=== PATIENT | male | born 1980 | race Caucasian/White ===

== ENCOUNTER 2025-04-04 13:14 | Emergency (ER) | payer OTHER, SELFPAY ==
--- OUTSIDE RECORDS SUMMARY | 2025-04-04 13:16 | XMS_ITS | Encounter Summary ---
Author Organization [facility] Healthcare Address [address] [place] [address] Care Team Providers Care Roof Bolter Name Role Phone Freda Wray HEATING ELEMENT REPAIRER Unavailable [phone] Miri Coates NP Primary Care Provider [phone] Miri Coates NP Primary Care Provider [phone] Encounter Details Date Type Department Care Team (Late st Contact Info) Description 11/25/2024 Telephone [facility] Medical Group Primary Care at [address] [address] Miri Coates NP [address] [place] [address] [address] [place] [address] Social History Tobacco Use Types Packs/Day Years Used Date Smoking Tobacco: Never Smokeless Tobacco: Current Chew Alcohol Use Standard Drinks/Week Comments Yes 0 (1 standard drink = 0.6 oz pur e alcohol) [facility] Utilities Answer Date Recorded In the past 12 months has [place], gas, oil, or water [employer] threatened to shut off services in your home? No 09/03/2023 Social Connection and Isolat ion Panel [NHANES] Answer Date Recorded In a typical week, how many times do you talk on the phone with family, friends, or neighbors? More than three times a week 09/03/2023 How often do you get togethe r with friends or relatives? More than three times a week 09/03/2023 How often do you attend [facility] or baptist services? Never 09/03/2023 Do you belong to any clubs o r organizations such as tenriism groups, unions, fraternal or athletic groups, or school groups? No 09/03/2023 How often do you attend meet ings of the clubs or organizations you belong to? Never 09/03/2023 Are you , , di vorced, , never , or living with a partner? 09/03/2023 AUDIT-C Answer Date Recorded Q1: How often do you have a drink containing alcohol? Never 09/26/2023 Q2: How many drinks containi ng alcohol do you have on a typical day when you are drinking? Patient does not drink Q3: How often do you have si x or more drinks on one occasion? Never 09/26/2023 Overall Financial Resource Strain (CARDIA) Answe r Date Recorded How hard is it for you to pa y for the very basics like food, housing, medical care, and heating? Not very hard 09/03/2023 PHQ-2 Answer Date Recorded PHQ-2 Total Score (If total score is 3 or more points, staff should administer the PHQ-9) 0 11/18/2024 Hunger Vital Sign Answer Date Recorded Within the past 12 months, y ou worried that your food would run out before you got the money to buy more. Never true 09/03/20 23 Within the past 12 months, t he food you bought just didn't last and you didn't have money to get more. Never true 09/03/2023 PRAPARE - Transportation Answer Date Re corded In the past 12 months, has l ack of transportation kept you from medical appointments or from getting medications? No 08/16 In the past 12 months, has l ack of transportation kept you from meetings, work, or from getting things needed for daily living? No 09/03/2023 Housing Stability Vital Sign Answer Delmer e Recorded In the last 12 months, was t here a time when you were not able to pay the mortgage or rent on time? No 09/03/2023 In the last 12 months, how many places have you lived? 1 09/03/2023 In the last 12 months, was t here a time when you did not have a steady place to sleep or slept in a mcc (including now)? No 09/03/2023 Personal Safety Answer Date Recorded Have you ever been in or are you currently in a harmful physical or emotional relationship or is someone making you feel afraid or unsafe? Denies 09/26/2023 Sex and Gender Information Value Date Recorded Sex Assigned at Not on file Legal Sex Male 3:24 AM VENDETTE Gender Identity Not on file Sexual Orientation Not on file documented as of this encounter Plan of Treatment Not on file documented as of this encounter Visit Diagnoses Not on filedocumented in this encounter Care Teams Roof Bolter Relationship Specialty [place] [address] [facility] [address] [place] [address] PCP - General Family Medicine 10/03/23 02/24/25 Miri Coates NP [address] [facility] [address] [place] [address] PCP - General Family Medicine 02/25/25 Freda Wray HEATING ELEMENT REPAIRER [address] [facility] [address] [place] [address] Nurse Practitioner Urology 09/04/23 documented as of this encounter
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
--- OUTSIDE RECORDS SUMMARY | 2025-04-04 13:16 | XMS_ITS | Clinical Summary ---
Author Organization [facility] Address [address] [place] [address] Care Team Providers Care Game Room Attendant Name Role Phone Unavailable Primary Care Provider Unavailabl e Social History Tobacco Use Types Packs/Day Years Used Date Smoking Tobacco: Never Assessed Sex and Gender Information Value Date Recorded Sex Assigned at Not on file Legal Sex Male 1:30 PM PATIENT SERVICES CLERK Gender Identity Not on file Sexual Orientation Not on file Plan of Treatment Health Maintenance Due Date Last Done Comments Hepatitis C Virus (HCV) Screening 1980 Hepatitis B Immunization (1 of 3 - 19+ 3-dose series) 1997 Colonoscopy 2023 Colorectal Cancer Screening 2023 Influenza Immunization (#1) 2024 07/25/2018 SARS-COV-2 Immunization ( season) 2024 Respiratory Syncytial Virus (RSV) Immunization (Adult) (1 - 1-dose 75+ series) 2053 DTaP/Tdap/Td Immunization Discontinued 06/10/2018 TdaP Immunization Completed 06/10/2018 Meningococcal Immunization (ACWY) Aged Out No longer eligible based on patient's age to complete this topic Pneumococcal Immunization Combined Aged Out No longer eligible b ased on patient's age to complete this topic Rotavirus Immunization Aged Out No lo nger eligible based on patient's age to complete this topic
--- OUTSIDE RECORDS SUMMARY | 2025-04-04 13:16 | XMS_ITS | Referral Summary ---
Author Organization [facility] Address [address] [place] [address] Care Team Providers Care Chemical Manager Name Role Phone Freda Wray TORCH BRAZER Unavailable [phone] Miri Coates NP Primary Care Provider [phone] Encounters Date Type Department Care Team Description 01/21/2025 12:30 PM CDT Office Visit [facility] Primary Care at [address] [address] Miri Coates NP Primary hypertension (Primary Dx); Staphylococcus infection of nose from Last 3 Months Allergies No known active allergies Medications amlodipine-vals don (EXFORGE) 10-320 mg per tablet Take 1 tablet by mouth daily 90 tablet 1 5 01/22/20 26 Active mupirocin (BACTROBAN) 2 % ointment Apply topically 3 (three) times a day 22 g 5 Active Active Problems Problem Noted Date Diagnosed Date Annual physical exam 12/27/2023 Assessment & Plan (11/18/2024 3:25 PM INSTRUMENTATION ENGINEERING TECHNICIAN): -Recommended: Healthy diet. Avoiding junk food/fast food. [...] 11/14/2023 Assessment & Plan (11/18/2024 3:24 PM INSTRUMENTATION ENGINEERING TECHNICIAN): Cholesterol elevated last year. Will recheck with labs today Assessment & Plan (11/14/2023 10:15 AM INSTRUMENTATION ENGINEERING TECHNICIAN): Reviewed recent lab work with patient. LDL [...] his blood pressure medication to amlodipine valsartan 10/325. I asked him to call me with any side effects such as dizziness or lightheadedness. I refilled medication and I asked him to send me some blood pressures through [employer]. And will have him follow-up in 6 months for recheck Assessment & Plan (11/18/2024 3:24 PM INSTRUMENTATION ENGINEERING TECHNICIAN): Worsening, although he is also off the [...] blood pressure readings in 1 month through [employer]. Will have him follow-up in office in 6 months Assessment & Plan (11/14/2023 10:07 AM INSTRUMENTATION ENGINEERING TECHNICIAN): We are going to stop the Coreg. Start lisinopril 20 mg once daily. We are going to have him follow-up in 4-6 weeks for recheck on hypertension and physical. Assessment & Plan (10/03/2023 10:26 AM INSTRUMENTATION ENGINEERING TECHNICIAN): New diagnosis. Uncontrolled. Rechecked manually and was [...] 09/05/2023 Assessment & Plan (11/14/2023 10:09 AM INSTRUMENTATION ENGINEERING TECHNICIAN): He is having more pain on the [...] 09/02/2023 Assessment & Plan (10/03/2023 10:25 AM INSTRUMENTATION ENGINEERING TECHNICIAN): Currently has stents placed. Has follow-up with [...] 12/27/2023 Assessment & Plan (11/14/2023 10:08 AM INSTRUMENTATION ENGINEERING TECHNICIAN): Given symptoms of dysuria with urination I am going to go ahead and start Cipro 500 mg b.i.d. for 7 days. In the interim will send the urine off for culture. Then will call him with culture results and get an update on his symptoms if they have improved with antibiotics Gross hematuria 11/14/2023 12/27/2023 Assessment & Plan (11/14/2023 10:07 AM INSTRUMENTATION ENGINEERING TECHNICIAN): Urine dip was negative with the exception [...] up that will be chosen by pt Immunizations Immunization Administration Dates Next Due Influenza, Quadrivalent, Spl it, Preservative Free, Intramuscular 07/25/2018 Influenza, Unspecified 11/14/2023(Deferr ed: Patient Refused),10/03/2023(Deferred: Patient Refused),09/17/2022(Deferred: Patient Refused),06/17/2022(Deferred: Patient Refused) Tdap 06/11/2018,06/10/2018 Social History Tobacco Use Types Packs/Day Years Used Date Smoking Tobacco: Never Smokeless Tobacco: Current Chew Tobacco Cessation:Ready to Q uit: No; Counseling Given: Yes Alcohol Use Standard Drinks/Week Comments Yes 0 (1 standard drink = 0.6 oz pur e alcohol) [facility] Utilities Answer Date Recorded In the past 12 months has e electric, gas, oil, or water company threatened to shut off services in your [...] often do you attend chur ch or christian services? Never 09/03/2023 Do you belong to any clubs o r organizations such as baptism groups, unions, fraternal or athletic groups, or [...] place to sleep or slept in a jail (including now)? No 09/03/2023 Personal Safety Answer Date Recorded Have you ever been in or are you currently in a harmful physical or emotional relationship or is someone making you feel afraid or unsafe? Denies 09/26/2023 Sex and Gender Information Value Date Recorded Sex Assigned at Not on file Legal Sex Male 3:24 AM INSTRUMENTATION ENGINEERING TECHNICIAN Gender Identity Not on file Sexual Orientation Not on file Last Filed Vital Signs Vital Sign Reading [...] 01/21/2025 12:35 PM CDT Plan of Treatment Not on file Medical Devices Explanted Type Area Lease Purchase Truck Driver Device Identifier Shelf Expiration Date Model / Serial / Lot [employer] Inc [id number] 6fr 24cm 145cm Radiopaque Positioner Filiform Flexible Tip - [id number] Implanted:Qty: 1 on 09/26/2023 by Jacek Perez MD at [facility] Explanted:Qty: 1 on 11/25/2023 by Mirtha Valentino MD Stent Left: Ureter [employer] [id number] 05/27/2026 [id number] / / [id number] [employer] Universa 7fr 30cm Radiopaque Positioner Monofilament Tether [id number] - [id number] Implanted:Qty: 1 on 09/03/2023 by Avery Jennings MD at [facility] Explanted:Qty: 1 on 09/26/2023 by Jacek Perez MD at [facility] Left: Ureter [employer] 01/08/2025 [id number] / / [id number] Procedures Procedure Name Priority Date/Time Associated Diagnosis Comments HEPATITIS C ANTIBODY Routine 11/18/2024 2:59 PM INSTRUMENTATION ENGINEERING TECHNICIAN Need for hepatitis C screening test Encounter for hepatitis C screening test for low risk patient from Last 3 Months or Most Recently Relevant to Health Maintenance Results * Hepatitis C antibody Blood (11/18/2024 2:59 PM INSTRUMENTATION ENGINEERING TECHNICIAN) Hep C Ab Nonreactive Nonreactive Comment: Interpretive [...] revised on 2019. Blood 11/18/2024 2:59 PM INSTRUMENTATION ENGINEERING TECHNICIAN 11/18/2024 9:04 PM INSTRUMENTATION ENGINEERING TECHNICIAN Miri Coates NP LAB MICROBIOLOGY - GENERAL OR DERABLES Final Result [facility] [id number] [address] Department [place] [address] from Last 3 Months or Most Recently Relevant to Health Maintenance Insurance [facility]PP[facility] Address: [facility] [address] [place] [address] [facility]/PPO Address: [facility] [id number] [place] [id number] Advance Directives For more information, please contact: [phone] * Full Code (Latest Code Status on File) Date Activated Date Inactivated Comments 09/02/2023 7:22 PM 09/04/2023 8:30 PM Care Teams Chemical Manager Relationship Specialty Start Date End Date Miri Coates NP [address] [facility] [address] [place] [address] PCP - General Family Medicine 02/25/25 [place] [address] [address] [facility] [address] [place] [address] Nurse Practitioner Urology 09/04/23
[2025-04-04 13:24] VITALS: BP 151/107; PULSE 98; RESP 20; TEMP 37.1; O2SAT 94
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
[2025-04-04] MEDS: TETANUS,DIPHTHERIA,AC PERTUSSIS ADULT 0.5 ML (ADACEL) IM (13:33)
[2025-04-04] MEDS: LIDO 1%/EPINEPHRINE 1:100,000 20 ML VIAL 10 ML INFILTRATE (13:33)
--- OUTSIDE RECORDS SUMMARY | 2025-04-04 14:03 | XMS_ITS | Encounter Summary ---
Author Organization [facility] Address [address] [place] [address] Care Team Providers Care Computational Mathematician Name Role Phone Freda Wray CAR WORKER Unavailable [phone] Miri Coates NP Primary Care Provider [phone] Miri Coates NP Primary Care Provider [phone] Encounter Details Date Type Department Care Team (Late st Contact Info) Description 11/25/2024 Telephone [facility] Primary Care at [address] [address] Miri Coates NP [address] [place] [address] [address] [place] [address] Social History Tobacco Use Types Packs/Day Years Used Date Smoking Tobacco: Never Smokeless Tobacco: Current Chew Alcohol Use Standard Drinks/Week Comments Yes 0 (1 standard drink = 0.6 oz pur e alcohol) [facility] Utilities Answer Date Recorded In the past 12 months has [employer], gas, oil, or water [employer] threatened to shut off services in your [...] week 09/03/2023 How often do you attend [facility] or moravian services? Never 09/03/2023 Do you belong to [...] on file Legal Sex Male 3:24 AM TECHNICIAN AUTOMATED EQUIPMENT Gender Identity Not on file Sexual Orientation Not on file documented as of this encounter Plan of Treatment Not on file documented as of this encounter Visit Diagnoses Not on filedocumented in this encounter Care Teams Computational Mathematician Relationship Specialty [place] [address] [address] [facility] [address] [place] [address] PCP - General Family Medicine 10/03/23 02/24/25 Miri Coates NP [address] [facility] [address] [place] [address] PCP - General Family Medicine 02/25/25 Freda Wray CAR WORKER [address] [address] [facility] [address] [place] [address] Nurse Practitioner Urology 09/04/23 documented as of this encounter
--- OUTSIDE RECORDS SUMMARY | 2025-04-04 14:03 | XMS_ITS | Clinical Summary ---
Author Organization [facility] Address [address] [place] [address] Care Team Providers Care Trial Paralegal Name Role Phone Freda Wray WELDING ROBOT OPERATOR Unavailable [phone] Miri Coates NP Primary Care Provider [phone] Allergies No known active allergies Medications amlodipine-vals don (EXFORGE) 10-320 mg per tablet Take 1 tablet by mouth daily 90 tablet 1 5 01/22/20 26 Active mupirocin (BACTROBAN) 2 % ointment Apply topically 3 (three) times a day 22 g 5 Active Active Problems Problem Noted Date Diagnosed Date Annual physical exam 12/27/2023 Assessment & Plan (11/18/2024 3:25 PM SUPERINTENDENT CUSTODIAN JANITOR): -Recommended: Healthy diet. Avoiding junk food/fast food. [...] 11/14/2023 Assessment & Plan (11/18/2024 3:24 PM SUPERINTENDENT CUSTODIAN JANITOR): Cholesterol elevated last year. Will recheck with labs today Assessment & Plan (11/14/2023 10:15 AM SUPERINTENDENT CUSTODIAN JANITOR): Reviewed recent lab work with patient. LDL [...] to send me some blood pressures through [employer]. And will have him follow-up in 6 months for recheck Assessment & Plan (11/18/2024 3:24 PM SUPERINTENDENT CUSTODIAN JANITOR): Worsening, although he is also off the [...] blood pressure readings in 1 month through [employer]. Will have him follow-up in office in 6 months Assessment & Plan (11/14/2023 10:07 AM SUPERINTENDENT CUSTODIAN JANITOR): We are going to stop the Coreg. Start lisinopril 20 mg once daily. We are going to have him follow-up in 4-6 weeks for recheck on hypertension and physical. Assessment & Plan (10/03/2023 10:26 AM SUPERINTENDENT CUSTODIAN JANITOR): New diagnosis. Uncontrolled. Rechecked manually and was [...] 09/05/2023 Assessment & Plan (11/14/2023 10:09 AM SUPERINTENDENT CUSTODIAN JANITOR): He is having more pain on the [...] 09/02/2023 Assessment & Plan (10/03/2023 10:25 AM SUPERINTENDENT CUSTODIAN JANITOR): Currently has stents placed. Has follow-up with [...] 12/27/2023 Assessment & Plan (11/14/2023 10:08 AM SUPERINTENDENT CUSTODIAN JANITOR): Given symptoms of dysuria with urination I am going to go ahead and start Cipro 500 mg b.i.d. for 7 days. In the interim will send the urine off for culture. Then will call him with culture results and get an update on his symptoms if they have improved with antibiotics Gross hematuria 11/14/2023 12/27/2023 Assessment & Plan (11/14/2023 10:07 AM SUPERINTENDENT CUSTODIAN JANITOR): Urine dip was negative with the exception [...] Description 01/21/2025 12:30 PM CDT Office Visit [facility] Primary Care at [address] [address] Miri Coates NP Primary hypertension [...] drink = 0.6 oz pur e alcohol) [facility] Utilities Answer Date Recorded In the past 12 months has e electric, gas, oil, or water [employer] threatened to shut off services in your [...] often do you attend chur ch or protestant services? Never 09/03/2023 Do you belong to any clubs o r organizations such as shinto groups, unions, fraternal or athletic groups, or [...] place to sleep or slept in a penitentiary (including now)? No 09/03/2023 Personal Safety Answer Date Recorded Have you ever been in or are you currently in a harmful physical or emotional relationship or is someone making you feel afraid or unsafe? Denies 09/26/2023 Sex and Gender Information Value Date Recorded Sex Assigned at Not on file Legal Sex Male 3:24 AM SUPERINTENDENT CUSTODIAN JANITOR Gender Identity Not on file Sexual Orientation [...] this topic Medical Devices Explanted Type Area Keno Attendant Device Identifier Shelf Expiration Date Model / Serial / Lot [employer] [id number] 6fr 24cm 145cm Radiopaque Positioner Filiform Flexible Tip - [id number] Implanted:Qty: 1 on 09/26/2023 by Jacek Perez MD at [facility] Explanted:Qty: 1 on 11/25/2023 by Mirtha Valentino MD Stent Left: Ureter [employer] [id number] 05/27/2026 [id number] / / [id number] [employer] Universa 7fr 30cm Radiopaque Positioner Monofilament Tether [id number] - [id number] Implanted:Qty: 1 on 09/03/2023 by Avery Jennings MD at [facility] Explanted:Qty: 1 on 09/26/2023 by Jacek Perez MD at [facility] Left: Ureter [employer] 01/08/2025 [id number] / / [id number] Procedures Procedure Name Priority Date/Time Associated Diagnosis Comments HEPATITIS C ANTIBODY Routine 11/18/2024 2:59 PM SUPERINTENDENT CUSTODIAN JANITOR Need for hepatitis C screening test Encounter for hepatitis C screening test for low risk patient from Last 3 Months or Most Recently Relevant to Health Maintenance Results * Hepatitis C antibody Blood (11/18/2024 2:59 PM SUPERINTENDENT CUSTODIAN JANITOR) Hep C Ab Nonreactive Nonreactive Comment: Interpretive [...] revised on 2019. Blood 11/18/2024 2:59 PM SUPERINTENDENT CUSTODIAN JANITOR 11/18/2024 9:04 PM SUPERINTENDENT CUSTODIAN JANITOR Miri Coates NP LAB MICROBIOLOGY - GENERAL OR DERABLES Final Result Performing Organization Address City/State/ZIP Co md Phone Number [facility] [id number] [address] Department [place] [address] from Last 3 Months or Most Recently Relevant to Health Maintenance Insurance [facility]PP[facility] Address: [address] [address] [place] [address] [facility]PP[facility] Address: [address] [address] [place] [address] [address] [place] [address] Advance Directives For more information, please contact: [phone] * Full Code (Latest Code Status on File) Date Activated Date Inactivated Comments 09/02/2023 7:22 PM 09/04/2023 8:30 PM Care Teams Trial Paralegal Relationship Specialty Start Date End Date Miri Coates NP [address] [facility] [address] [place] [address] PCP - General Family Medicine 02/25/25 [place] [address] [address] [facility] [address] [place] [address] Nurse Practitioner Urology 09/04/23
--- OUTSIDE RECORDS SUMMARY | 2025-04-04 14:03 | XMS_ITS | Referral Summary ---
Author Organization [facility] Address [address] [place] [address] Care Team Providers Care Production Illustrator Name Role Phone Freda Wray PLANT OPERATIONS COORDINATOR Unavailable [phone] Miri Coates NP Primary Care Provider [phone] Encounters Date Type Department Care Team Description 01/21/2025 12:30 PM CDT Office Visit [facility] Primary Care at [address] [address] Miri Coates NP Primary hypertension [...] 12/27/2023 Assessment & Plan (11/18/2024 3:25 PM AUTOMATION MACHINE OPERATOR): -Recommended: Healthy diet. Avoiding junk food/fast food. [...] 11/14/2023 Assessment & Plan (11/18/2024 3:24 PM AUTOMATION MACHINE OPERATOR): Cholesterol elevated last year. Will recheck with labs today Assessment & Plan (11/14/2023 10:15 AM AUTOMATION MACHINE OPERATOR): Reviewed recent lab work with patient. LDL [...] to send me some blood pressures through [employer]. And will have him follow-up in 6 months for recheck Assessment & Plan (11/18/2024 3:24 PM AUTOMATION MACHINE OPERATOR): Worsening, although he is also off the [...] blood pressure readings in 1 month through [employer]. Will have him follow-up in office in 6 months Assessment & Plan (11/14/2023 10:07 AM AUTOMATION MACHINE OPERATOR): We are going to stop the Coreg. Start lisinopril 20 mg once daily. We are going to have him follow-up in 4-6 weeks for recheck on hypertension and physical. Assessment & Plan (10/03/2023 10:26 AM AUTOMATION MACHINE OPERATOR): New diagnosis. Uncontrolled. Rechecked manually and was [...] 09/05/2023 Assessment & Plan (11/14/2023 10:09 AM AUTOMATION MACHINE OPERATOR): He is having more pain on the [...] 09/02/2023 Assessment & Plan (10/03/2023 10:25 AM AUTOMATION MACHINE OPERATOR): Currently has stents placed. Has follow-up with [...] 12/27/2023 Assessment & Plan (11/14/2023 10:08 AM AUTOMATION MACHINE OPERATOR): Given symptoms of dysuria with urination I am going to go ahead and start Cipro 500 mg b.i.d. for 7 days. In the interim will send the urine off for culture. Then will call him with culture results and get an update on his symptoms if they have improved with antibiotics Gross hematuria 11/14/2023 12/27/2023 Assessment & Plan (11/14/2023 10:07 AM AUTOMATION MACHINE OPERATOR): Urine dip was negative with the exception [...] drink = 0.6 oz pur e alcohol) [facility] Utilities Answer Date Recorded In the past [...] often do you attend chur ch or yazdanism services? Never 09/03/2023 Do you belong to any clubs o r organizations such as episcopalian groups, unions, fraternal or athletic groups, or [...] place to sleep or slept in a care home (including now)? No 09/03/2023 Personal Safety Answer Date Recorded Have you ever been in or are you currently in a harmful physical or emotional relationship or is someone making you feel afraid or unsafe? Denies 09/26/2023 Sex and Gender Information Value Date Recorded Sex Assigned at Not on file Legal Sex Male 3:24 AM AUTOMATION MACHINE OPERATOR Gender Identity Not on file Sexual Orientation [...] on file Medical Devices Explanted Type Area Gore Stitcher Device Identifier Shelf Expiration Date Model / Serial / Lot [employer] Inc [id number] 6fr 24cm 145cm Radiopaque Positioner Filiform Flexible Tip - [id number] Implanted:Qty: 1 on 09/26/2023 by Jacek Perez MD at [facility] Explanted:Qty: 1 on 11/25/2023 by Mirtha Valentino MD Stent Left: Ureter [employer] [id number] 05/27/2026 [id number] / / [id number] [employer] Universa 7fr 30cm Radiopaque Positioner Monofilament Tether [id number] - [id number] Implanted:Qty: 1 on 09/03/2023 by Avery Jennings MD at [facility] Explanted:Qty: 1 on 09/26/2023 by Jacek Perez MD at [facility] Left: Ureter [employer] 01/08/2025 [id number] / / [id number] Procedures Procedure Name Priority Date/Time Associated Diagnosis Comments HEPATITIS C ANTIBODY Routine 11/18/2024 2:59 PM AUTOMATION MACHINE OPERATOR Need for hepatitis C screening test Encounter for hepatitis C screening test for low risk patient from Last 3 Months or Most Recently Relevant to Health Maintenance Results * Hepatitis C antibody Blood (11/18/2024 2:59 PM AUTOMATION MACHINE OPERATOR) Hep C Ab Nonreactive Nonreactive Comment: Interpretive [...] revised on 2019. Blood 11/18/2024 2:59 PM AUTOMATION MACHINE OPERATOR 11/18/2024 9:04 PM AUTOMATION MACHINE OPERATOR Miri Coates NP LAB MICROBIOLOGY - GENERAL OR DERABLES Final Result [facility] [id number] [address] Department [place] [employer] [address] from Last 3 Months or Most Recently Relevant to Health Maintenance Insurance [facility] Advance Directives For more information, please contact: [phone] * Full Code (Latest Code Status on File) Date Activated Date Inactivated Comments 09/02/2023 7:22 PM 09/04/2023 8:30 PM Care Teams Production Illustrator Relationship Specialty Start Date End Date Miri Coates NP [address] [facility] [address] [place] [address] PCP - General Family Medicine 02/25/25 [place] [address] [address] [facility] [address] [place] [address] Nurse Practitioner Urology 09/04/23
--- OUTSIDE RECORDS SUMMARY | 2025-04-04 14:03 | XMS_ITS | Clinical Summary ---
Author Organization [facility] Address [address] [place] [address] Care Team Providers [facility] Service [facility] Representative Name Role Phone Unavailable Primary Care Provider Unavailabl e Social History Tobacco Use Types Packs/Day Years Used Date Smoking Tobacco: Never Assessed Sex and Gender Information Value Date Recorded Sex Assigned at Not on file Legal Sex Male 1:30 PM BODY PR[employer]ER Gender Identity Not on file Sexual Orientation [...]
== END 2025-04-04 14:20 | disposition short-term general hospital (02) ==
LOC: CHSED 14:00
PROVIDERS: Emergency Provider Emergency Medicine; Referring Provider Internal Medicine
DX: S71.111A Laceration without foreign body, right thigh, initial encounter (principal); Z23 Encounter for immunization; W26.0XXA Contact with knife, initial encounter
CPT/HCPCS: 12002; 90471; 90715; 99282; J2004